=== PATIENT | female | born 1970 | race Caucasian/White ===

== ENCOUNTER 2017-01-07 19:12 | Emergency (ER) | payer SELFPAY ==
[~2017-01-07] VITALS: Ht 162.6 cm; Wt 56.7 kg
[2017-01-07] MEDS ORDERED: XANAX2 MG ORAL (19:28)
[2017-01-07 19:40] VITALS: BP 145/95
[2017-01-07 19:41] VITALS: BP 130/94
[2017-01-07] MEDS ORDERED: Morgan Lens TOPIC ONE (19:45)
[2017-01-07] MEDS ORDERED: NS Irrig 1000ml 1,000 ML IRRIG ONE (19:45)
[2017-01-07] MEDS ORDERED: IBUPROFEN600 MG ORAL (20:16)
--- NOTE | 2017-01-07 20:32 | Emergency Room Report ---
History of Present Illness General Chief Complaint: Pain Source: Patient Present Illness HPI The patient is a 46-year-old female presenting with right foot pain and possible foreign body in the left eye. She states that she was walking and kicked her with her right foot and fell onto dirt this afternoon. She states that dirt flew into the left eye. Pain is described as an 8/10 dull ache to the inside of the right foot and is worse with touch. She denies previous injury to this area. She denies any radiating pain. She denies numbness or tingling. She states that she washed out the left eye with water. She denies any eye pain. She denies changes in vision. Allergies: Uncoded Allergies: PENICILLIN (Allergy, Unknown, 01/07/17) Patient History Past Medical History: see triage record Pertinent Family History: none Last Menstrual Period: 01/22/17 Now: No : 10 Para: 4 Reviewed Nursing Documentation: PMH: Agreed, PSxH: Agreed Nursing Documentation-PMH History Of Psychiatric Problem: Yes - anxiety Review of Systems All Other Systems: negative except mentioned in HPI Physical Exam Vital Signs Date Time Temp Pulse Resp B/P Pulse Ox O2 Delivery O2 Flow Rate FiO2 01/07/17 19:23 97.9 102 16 145/95 96 Room Air Sp02 EP Interpretation: reviewed, normal General Appearance: no apparent distress, alert, GCS 15, non-toxic Head: normocephalic, atraumatic Eyes: bilateral eye EOMI, bilateral eye PERRL, bilateral eye normal inspection Musculoskeletal: back normal, gait/station normal, normal range of motion, no calf tenderness, tender - TTP over the R medial foot Neurologic: alert, oriented x3, responsive, motor strength/tone normal, sensory intact, normal gait, speech normal Psychiatric: judgement/insight normal, memory normal, mood/affect normal, no suicidal/homicidal ideation Skin: normal color, no rash, warm/dry, well hydrated Lymphatic: no adenopathy Medical Decision Making PA Attestation Dr. Winter is my supervising physician. Patient management was discussed with my supervising physician Diagnostic Impression: Primary Impression: Foot pain, right Additional Impression: Foreign body of left eye Qualified Codes: T15.92XA - Foreign body on external eye, part unspecified, left eye, initial encounter ER Course The patient is a 46-year-old female presenting with pain and left eye irritation Ddx considered include but not limited to sprain/strain, fracture, contusion, conjunctivitis, foreign body, abrasion Physical exam: No apparent distress Eyes: EOMI. PERRL. No injection. No lid edema. R foot: Tenderness to palpation over the medial aspect. No obvious deformity. No ecchymosis. Normal gait. X-ray of the foot is unremarkable Alonzo lenses placed the left eye and NS used for irrigation. The patient states that she feels better. She'll be discharged home with a prescription for Motrin Other X-Ray Diagnostic Results Other X-Ray Diagnostic Results : X-Ray ordered: R foot # of Views/Limited Vs Complete: 3 View Indication: Pain EP Interpretation: Yes Interpretation: no dislocation, no soft tissue swelling, no fractures Impression: No acute disease Interpreting ER Provider: Myself LOULOU Scribe Text My interpretation of the R foot xrays are there are no fractures, dislocations or soft tissue swelling. Last Vital Signs Date Time Temp Pulse Resp B/P Pulse Ox O2 Delivery O2 Flow Rate FiO2 01/07/17 19:23 97.9 102 16 145/95 96 Room Air Status: improved Disposition: HOME, SELF-CARE Condition: Improved Scripts Ibuprofen* (MOTRIN*) 600 Mg Tablet 600 MG ORAL Q8H Y for For Pain, #30 TAB 0 Refills Prov: TRISTA PABLO 01/07/17 Patient Instructions: Contusion Additional Instructions: I discussed my findings with the patient. All questions and concerns have been answered. Treatment and medication compliance have been addressed. I advised the patient that they need to follow up with PMD in 3-5 days. Return to ED if symptoms worsen, new symptoms arise, or if needed for any reason. Patient verbalized understanding of discharge instructions. TRISTA PABLO Jan 07, 2017 20:32
[2017-01-07 21:25] VITALS: BP 132/92
[2017-01-07 21:30] VITALS: BP 132/92
--- NOTE | 2017-01-08 11:08 | Diagnostic Imaging Report ---
Indication: Pain Comparison: None Findings: 3 views of the right foot were obtained. No acute fractures, malalignment, erosions or periostitis are identified. Bone mineralization is within normal limits. Soft tissues are unremarkable. Impression: Negative examination of the right foot.
== END 2017-01-07 21:30 | disposition home or self-care (01) ==
LOC: EMR 19:38
DX: M25.571 Pain in right ankle and joints of right foot (principal); T15.92XA Foreign body on external eye, part unspecified, left eye, initial encounter; W19.XXXA Unspecified fall, initial encounter; Y93.9 Activity, unspecified; Y92.9 Unspecified place or not applicable; Z88.0 Allergy status to penicillin
CPT/HCPCS: 99283

== ENCOUNTER 2017-06-27 20:05 | Emergency (ER) | payer MEDICAID ==
[~2017-06-27] VITALS: Ht 165.1 cm; Wt 59.0 kg
[~2017-06-27 20:05] MED LIST: IBUPROFEN600 MG ORAL; XANAX2 MG ORAL
[2017-06-27 20:20] VITALS: BP 164/107
[2017-06-27] MEDS ORDERED: BACTRIM DS TAB1 EAC1 ORAL (21:34)
--- NOTE | 2017-06-27 21:41 | Emergency Room Report ---
History of Present Illness General Chief Complaint: Pain Source: Patient Present Illness HPI 46-year-old female walks in with 2-3 days of worsening pain, redness and swelling to left leg. Denies fever, chills or history of diabetes. Denies any trauma, animal bites to left leg.. denies weakness, loss of sensation or numbness the left lower extremity. Denies pain with ambulation to left leg. She is taking antibiotics for a similar condition in the past. Allergies: Uncoded Allergies: PENICILLIN (Allergy, Unknown, 01/07/17) Patient History Past Medical History: none Past Surgical History: none Pertinent Family History: none Social History: Denies: smoking, alcohol use, drug use Last Menstrual Period: 6 weeks ago Now: No Immunizations: UTD Reviewed Nursing Documentation: PMH: Agreed, PSxH: Agreed Nursing Documentation-PMH Past Medical History: No Stated History Review of Systems All Other Systems: negative except mentioned in HPI Physical Exam Vital Signs Date Time Temp Pulse Resp B/P (MAP) Pulse Ox O2 Delivery O2 Flow Rate FiO2 06/27/17 20:11 97.5 96 18 164/107 99 Room Air Sp02 EP Interpretation: reviewed, normal General Appearance: normal inspection, well appearing, no apparent distress, alert, GCS 15, non-toxic Head: normocephalic, atraumatic Eyes: bilateral eye PERRL, bilateral eye EOMI ENT: normal ENT inspection, hearing grossly normal, normal pharynx, no angioedema, normal voice, TMs + canals normal, uvula midline, moist mucus membranes Neck: normal inspection, full range of motion, supple, thyroid normal, no meningismus, no bony tend Respiratory: normal inspection, lungs clear, normal breath sounds, no rhonchi, no respiratory distress, no retraction, no accessory muscle use, no wheezing, speaking full sentences Cardiovascular #1: regular rate, rhythm, no edema, no JVD, normal capillary refill Gastrointestinal: normal inspection, normal bowel sounds, non tender, soft, no mass, no peritonitis, non-distended, no guarding, no hernia, no pulsatile mass Genitourinary: no CVA tenderness Musculoskeletal: normal inspection, back normal, normal range of motion, no calf tenderness, pelvis stable, Hong's Sign negative Neurologic: normal inspection, alert, oriented x3, responsive, steel sampler III-XII nml as tested, motor strength/tone normal, cerebellar normal, normal gait, speech normal Psychiatric: normal inspection, judgement/insight normal, mood/affect normal, no suicidal/homicidal ideation, no delusions Skin: other - left lower extremity: From midportion of leg down, circumferential redness, erythema, induration. There is a crusted ulceration to front of both lower legs without purulent drainage. Lymphatic: normal inspection, no adenopathy Medical Decision Making Diagnostic Impression: Primary Impression: Cellulitis and abscess of left leg ER Course 46-year-old female with left lower leg cellulitis No obvious abscess at this time Patient appears to be undomiciled, concern for MRSA Rx Baxtrim for cellulitis, ?MRSA ER course: Patient has remained stable during ED stay. Disposition: Patient is to be discharged to home. Prescriptions given are bactrim DS Patient is instructed to follow up with their primary care doctor within 5 days. Strict return precautions discussed with patient such as fever, chills, worsening/severe pain, nausea, vomiting, which may indicate severe illness. Patient verbalizes understanding and agrees with plan. Please note that this Emergency Department Report was dictated using [employer] technology software, occasionally this can lead to erroneous entry secondary to interpretation by the dictation equipment Last Vital Signs Date Time Temp Pulse Resp B/P (MAP) Pulse Ox O2 Delivery O2 Flow Rate FiO2 06/27/17 20:20 97.5 96 18 164/107 99 Room Air Status: improved Disposition: HOME, SELF-CARE Condition: Improved Scripts Trimethoprim/Sulfamethoxazole 160/800* (BACTRIM DS TABLET*) 1 Each Tablet 1 TAB ORAL Q12H for 7 Days, #14 TAB 0 Refills Prov: SONIA MISHRA M.D. 06/27/17 Patient Instructions: Cellulitis, [id number] SONIA MISHRA M.D. Jun 27, 2017 21:41
[2017-06-27 21:42] VITALS: BP 164/107
== END 2017-06-27 21:42 | disposition home or self-care (01) ==
LOC: EMR 21:00
DX: L03.116 Cellulitis of left lower limb (principal); Z88.0 Allergy status to penicillin
CPT/HCPCS: 99283